=== PATIENT | female | born 1960 | race Caucasian/White ===

== ENCOUNTER → 2019-09-16 | Day surgery (SDC) | payer OTHER ==
[2019-09-13 11:08] LABS: BASOPHILS # (AUTO) 0.2 (0.0-0.1); BASOPHILS % 1.4 % (0.0-1.0); EOSINOPHILS # (AUTO) 0.5 (0.0-0.4); EOSINOPHILS % 4.6 % (0.0-6.0); HEMATOCRIT 42.7 % (34.2-44.1); HEMOGLOBIN 13.4 g/dL (12.0-16.0); LYMPHOCYTES # (AUTO) 2.6 (1.0-3.2); LYMPHOCYTES % 22.6 % (18.0-39.1); MEAN CORPUSCULAR HEMOGLOBIN 27.4 pg (28-32); MEAN CORPUSCULAR HGB CONC 31.4 g/dL (31-35); MEAN CORPUSCULAR VOLUME 87.3 fL (81-99); MONOCYTES # (AUTO) 0.7 (0.2-0.8); MONOCYTES % 5.9 % (4.4-11.3); NEUTROPHILS # (AUTO) 7.4 (2.1-6.9); PLATELET COUNT 220 x10e3/uL (140-360); RED BLOOD COUNT 4.89 x10e6/uL (3.6-5.1); RED CELL DISTRIBUTION WIDTH 13.4 % (11.7-14.4)
[2019-09-13 11:20] LABS: INR 0.87; PARTIAL THROMBOPLASTIN TIME 23.5 seconds (23.8-35.5); PROTHROMBIN TIME 12.3 seconds (11.9-14.5)
[2019-09-13 11:28] LABS: ALANINE AMINOTRANSFERASE 30 IU/L (0-55); ALBUMIN/GLOBULIN RATIO 1.1 (0.8-2.0); ALKALINE PHOSPHATASE 72 IU/L (40-150); ANION GAP 17.4 mmol/L (8-16); BLOOD UREA NITROGEN 17 mg/dL (7-26); BUN/CREATININE RATIO 19 (6-25); CALCIUM 9.7 mg/dL (8.4-10.2); CARBON DIOXIDE 23 mmol/L (22-29); CHLORIDE 105 mmol/L (98-107); CHOL/HDL RATIO 4.4 (3.0-3.6); CHOLESTEROL 132 MD/DL (0-199); EST GLOMERULAR FILTRATION RATE > 60 ML/MIN (60-); GLUCOSE 139 mg/dL (74-118); HDL CHOLESTEROL 30 MG/DL (40-60); LDL CHOLESTEROL 43 MG/DL (60-130); POTASSIUM 4.4 mmol/L (3.5-5.1); SODIUM 141 mmol/L (136-145); TRIGLYCERIDES 295 MG/DL (0-149)
[2019-09-16] VITALS (11 sets, daily range): BP systolic 66–135; BP diastolic 53–82
[~2019-09-16] VITALS: Ht 160 cm; Wt 109.3 kg
[~2019-09-16] MED LIST: ASPIRIN 325 MG TAB ONE; ATORVASTATIN CA20 MG PO; CARVEDILOL3.125 MG PO; CARVEDILOL6.25 MG PO; FENTANYL CITRATE/PF 100MCG/2 ML INJ ONE; FUROSEMIDE40 MG PO; GLIPIZIDE5 MG PO; HEPARIN SOD/SOD CHLORIDE 2,000 ML ONE; IMATINIB PO; IOPAMIDOL 370 MG/ML 200 ML INFUS..BTL INJ ONE; LIDOCAINE HCL 2% LOCAL 20 ML VIAL ONE; LORATADINE10 MG PO; METFORMIN HCL500 MG PO; MIDAZOLAM HCL 2 MG/2 ML VIAL ONE; SODIUM CHLORIDE 0.9% 1000ML 1,000 ML ONE; TRESIBA100 UNIT/1 SC; TRULICITY1.5 MG/0.5 SC; VERAPAMIL HCL 2.5 MG/ML 2 ML VIAL ONE; Z.0.COZAAR100 MG PO; Z.0.GLIPIZIDE ER10 M PO; Z.0.LASIX20 MG PO; Z.0.PRILOSEC40 MG PO; Z.0.SYNTHROID88 MCG PO
--- NOTE | 2019-09-16 10:00 | NUR ---
1000 am PREP NOTE PROCEDRAL .................................................................................. pt in CCL#10, prepped for procedure. Alert oriented and appropriate, PERRLA, respirations even and unlabored to room air. Pulses x4 extremities . Pedal pulses PT 2=/2+ palpable/DP weak doppler2+/2+ Cap fill brisk < 3 sec. bilateral feet warm and dry,[facility] Dr Snider un determine approach rt radial and bilateral femoral prepped with Asa po given preop. Skin warm and dry integrity appears intact in general. IV started by entry level lab technician RN and presents healthy w/o s/s of infiltration or complaint. Abdomen soft and supple. pt offered toileting, denies need to urinate or defecate. Personal affects with patient. Family at bedside. Pt and family verbalizes understanding of POC. Pre-Op Meds benadryl and xanax given. bed low and locked, side rails up x2 and call light at side. -Handoff to Raad blair/rn
--- NOTE | 2019-09-16 12:45 | NUR ---
1245pm RECEIVING NOTE [facility]............................................................... Bedside report received from Minh PATRICK. Identifierx2. Alert oriented and appropriate, PERRLA, respirations even and unlabored to room air. Pulses x4 extremities equal and strong. Pedal pulses PT/DP X4 and marked. Cap fill brisk < 3 sec. RT radial ok decrease air inTR band at 1305 and dc 2hr post TR band removal. Skin warm and dry integrity appears D/i IV 20g to left hand, presents healthy w/o s/s of infiltration or complaint. Abdomen soft and supple. pt offered toileting, denies need to urinate or defecate. No personal affects with patient. Family to pickup curbside at 1600pm. Pt and family verbalizes understanding of POC. Currently w/o complaint of pain or need. ds/rn
--- NOTE | 2019-09-16 13:30 | NUR ---
1330am RADIAL/PEDAL COMPRESSION REMOVAL NOTE: Initial Cuff volume 11 cc 1330am-2cccc Removed No hematoma/bleeding noted with normal neurovascular function. 1345am -5cc Removed No hematoma/ bleeding noted with normal neurovascular function. 1400am-5cc Removed No hematoma/bleeding noted with normal neurovascular function. Air removal completed. Stasis achieved sterile 2x2,Tegaderm, Coban dressing No hematoma, bleeding noted with normal neurovascular function. Wrist splint in place. Pt instructed on POC. Ds/Rn
--- NOTE | 2019-09-16 16:00 | NUR ---
1600pm [facility] DISCHARGE NURSING NOTE Pt meets DC criteria. RT Trband assessed for s/s of complication and presecence of hematoma. Skin warm, dry, no discolor, and pulses present. IV removed from left hand. Distal tip appears intact. VS WNL. Pt denies pain, sob, or need at this time. Family arrived and curbside teaching. Review of discharge paperwork and follow up instructions. verbalized understanding. Pt to wheelchair and transported to front of hospital. Transferred to private vehicle under own strength w/o incident with DC paperwork in hand. - ds/rn
--- NOTE | 2019-09-17 02:02 | Operative Report ---
DATE OF PROCEDURE: 09/16/2019 SURGEON: Tonio Mack MD PROCEDURE INDICATION: Nonsustained ventricular tachycardia and angina pectoris. PROCEDURES PERFORMED: 1. Left heart catheterization. 2. Selective coronary angiography. 3. Moderate sedation. PROCEDURE COMPLICATIONS: None. ESTIMATED BLOOD LOSS: Less than 15 mL. PROCEDURE SUMMARY: After consent was obtained, the patient was prepped and draped in a sterile fashion. The right radial site was locally infiltrated with 2% lidocaine and access was obtained with micropuncture kit. A TIG catheter was used for engagement of left main, right coronary artery and to cross the aortic valve for hemodynamic measurements. FINDINGS: 1. LV pressure 120/-1 with end-diastolic pressure of 16. 2. Aortic pressure is 108/69. 3. LV-gram reveals preserved left ventricular systolic function, normal regional wall motion, left ventricular ejection fraction of 65-70%. 4. Left main luminal irregularities observed, gives an LAD and circumflex. 5. The LAD has luminal irregularities. It gives a couple of diagonals and multiple short septal perforators. 6. The circumflex has luminal irregularities. It gives an obtuse marginal and left atrial branch. 7. The right coronary artery is dominant. It gives a conus branch of RV marginal and a terminal RPDA and RPLVs. The RPLV #2 has medium size caliber, luminal irregularities are noted throughout this dominant right coronary artery and its branches. CONCLUSION: No evidence of significant obstructive coronary artery disease, preserved left ventricular systolic function. RECOMMEND: Continue medical therapy for ventricular tachycardia, consider outpatient EP evaluation depending on response to discontinuation of Tasigna if okay with Heme-Onc. Tonio Mack MD AFV/MODL /[id number]
== END | disposition home or self-care (01) ==
LOC: CATH LAB 09:01
PROVIDERS: ATTEND Internal Medicine Cardiovascular Disease
DX: I47.2 Ventricular tachycardia (principal); I20.9 Angina pectoris, unspecified; E11.8 Type 2 diabetes mellitus with unspecified complications; E78.5 Hyperlipidemia, unspecified; I10 Essential (primary) hypertension; E66.01 Morbid (severe) obesity due to excess calories; R60.0 Localized edema; Z01.810 Encounter for preprocedural cardiovascular examination; Z01.812 Encounter for preprocedural laboratory examination; Z11.59 Encounter for screening for other viral diseases; Z79.84 Long term (current) use of oral hypoglycemic drugs; Z79.4 Long term (current) use of insulin
CPT/HCPCS: 36415; 80053; 80061; 85025; 85610; 85730; 93005; 93458; C1769; C1887; J2001; J2250; J3010; J7030; Q9967; U0002; 99152; 99153